=== PATIENT | male | born 1990 | race Caucasian/White ===

== ENCOUNTER 2017-10-26 10:33 | Emergency (ER) | payer BC ==
[~2017-10-26] VITALS: Ht 180.3 cm; Wt 78.5 kg
[2017-10-26 10:43] VITALS: BP 118/68
--- NOTE | 2017-10-26 10:55 | NUR ---
For discharge- [facility] given verbalized understanding. NO acute distress. Stable. Home ambulatory
== END 2017-10-26 10:53 | disposition home or self-care (01) ==
LOC: ER 10:35
DX: H73.011 Bullous myringitis, right ear (principal); F17.200 Nicotine dependence, unspecified, uncomplicated
CPT/HCPCS: 99283; A4606; Z7610